=== PATIENT | female | born 1940 | race Caucasian/White ===

== ENCOUNTER → 2017-07-07 | Outpatient (CLI) | payer OTHER ==
[~2017-07-07] MED LIST: ONDA8TAB6 PO; PROM25TA9 PO
--- NOTE | 2017-07-07 15:02 | DIAGNOSTIC IMAGING REPORT ---
A-PORT CHECK CLINICAL HISTORY: Abnormal port function. COMPARISON STUDY: None. FINDINGS: Total fluoroscopy time was 0.3 minutes. 13 fluoroscopic spot and digital subtraction images of the chest were obtained. A total of 20 cc of Optiray 300 was injected through the indwelling left subclavian Port-A-Cath. The tip is abnormally positioned and is a medial to the expected location of the SVC. Therefore, this likely resides within the azygos vein. There is also evidence for a fibrin sheath within the distal tip of the port. However, contrast does extend into the SVC. IMPRESSION: 1. Fibrin sheath within the distal port. However, contrast does extend into the SVC. 2. The distal tip of the port appears to be abnormally positioned and may reside within the azygos vein. Electronically signed by: Liang Lin M.D. 07/07/2017 3:01 PM Dictated Date/Time: 07/07/2017 2:57 PM
== END | disposition home or self-care (01) ==
LOC: C.RAD 14:02
PROVIDERS: ATTEND Internal Medicine Hematology
DX: Z51.11 Encounter for antineoplastic chemotherapy (principal); T82.41XA Breakdown (mechanical) of vascular dialysis catheter, initial encounter; X58.XXXA Exposure to other specified factors, initial encounter; Z51.0 Encounter for antineoplastic radiation therapy; C53.9 Malignant neoplasm of cervix uteri, unspecified

== ENCOUNTER → 2017-08-31 | Outpatient (CLI) | payer OTHER ==
--- NOTE | 2017-08-31 14:18 | DIAGNOSTIC IMAGING REPORT ---
INFUSION PORT CHECK CLINICAL HISTORY: Infusion port malfunction. Azygos positioning of the report suggested on prior study. Separate sheath. COMPARISON STUDY: Infusion port check dated 07/07/2017. PROCEDURE AND FINDINGS: The infusion port was accessed and approximately 20 cc of Optiray 300 was injected under fluoroscopic guidance using digital subtraction imaging to assess the patient's infusion port. The infusion port is unchanged in position. The tip is positioned medial to the expected location of the SVC and may be located within the azygos vein. There is evidence for fibrin sheath which is unchanged from previous. Contrast does extend into the SVC. Fluoroscopy time: 0.1 minutes. IMPRESSION: 1. Unchanged appearance of a fibrin sheath involving the distal port as compared to 07/07/2017. Contrast does reach the SVC. 2. The tip of the port is unchanged in position and may be located within the azygos vein. Electronically signed by: David Monique M.D. 08/31/2017 2:17 PM Dictated Date/Time: 08/31/2017 2:13 PM
== END | disposition home or self-care (01) ==
LOC: C.RAD 13:00
PROVIDERS: ATTEND Internal Medicine Hematology
DX: Z51.11 Encounter for antineoplastic chemotherapy (principal); Z95.828 Presence of other vascular implants and grafts

== ENCOUNTER 2017-11-23 10:20 | Inpatient (IN) | payer OTHER ==
[2017-11-23] VITALS (10 sets, daily range): BP systolic 108–132; BP diastolic 57–80; PULSE 86–102; TEMP 36.5–37.7; O2SAT 97–100; Ht 162.6 cm; Wt 57.4 kg
[~2017-11-23] VITALS: Ht 162.6 cm; Wt 57.4 kg
[~2017-11-23 10:20] MED LIST changes: +ONDA-170 PO; -ONDA8TAB6 PO
--- NOTE | 2017-11-23 12:34 | EMERGENCY ROOM VISIT NOTE ---
History Report prepared by Kely: Tim Fontaine Under the Supervision of: Dr. Fabi Carranza D.O. 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 The patient had labs done with her PCP and was advised to come to the ED for a possible blood transfusion. She has uterine cancer that spread to lymph nodes and stomach. She is currently being treated with chemotherapy. She notes intermittent abdominal, back pain, general weakness, and constant chills. She currently rates her pain a 4/10 in severity. She has thrush on her tongue, though she has not received medication for it. She denies any lightheadedness. 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 Review of Systems See HPI for pertinent positives & negatives. A total of 10 systems reviewed and were otherwise negative. Past Medical & Surgical Medical Problems: (1) Anemia (2) Diverticulosis Colon (W/O Ment Of Hemorrhage) (3) Hyponatremia (4) Uterine cancer Surgical Problems: (1) H/O tubal ligation (2) Hx of tubal ligation Family History No significant family history Social History Smoking Status: Never Smoker Alcohol Use: none Housing Status: lives with family Occupation Status: employed Current/Historical Medications Scheduled Diclofenac Sodium (Diclofenac Sodium Dr), 1 TAB PO Q8 Megestrol Acetate (Megestrol Acetate), 20 ML PO DAILY Multivitamin (Multivitamin), 1 TAB PO DAILY Ondansetron Hcl (Zofran), 8 MG PO Q8 Oyster Shell (Calcium), 1 TAB PO DAILY Scheduled PRN Promethazine Hcl (Phenergan), 25 MG PO Q4H PRN for Nausea Allergies Coded Allergies: No Known Allergies (Unverified , 05/28/14) Physical Exam Vital Signs Date Time Temp Pulse Resp B/P (MAP) Pulse Ox O2 Delivery O2 Flow Rate FiO2 11/23/17 15:30 122/62 11/23/17 15:20 102 19 99 11/23/17 15:20 101 21 113/70 98 11/23/17 15:19 113/70 11/23/17 15:15 133/68 11/23/17 15:12 122/66 11/23/17 15:09 37.7 102 22 132/72 98 11/23/17 15:09 11/23/17 15:00 132/72 11/23/17 14:50 104 24 11/23/17 14:30 130/69 11/23/17 14:20 102 26 99 11/23/17 14:00 133/65 11/23/17 13:52 110 18 112/70 100 Room Air 11/23/17 13:50 111 24 112/70 11/23/17 13:20 115 21 11/23/17 13:00 125/60 11/23/17 12:50 100 27 100 11/23/17 12:49 102 18 108/56 95 Room Air 11/23/17 12:30 108/56 11/23/17 12:25 114/58 11/23/17 12:09 100 11/23/17 11:55 101 18 107/61 99 Room Air 11/23/17 11:51 107/61 11/23/17 10:21 36.9 78 18 92/57 96 Room Air Physical Exam GENERAL: Elderly. alert, ill-appearing, cachetic, no distress. Ambulates okay. EYE EXAM: normal conjunctiva, PERRL and EOM's grossly intact OROPHARYNX: no exudate, no erythema, lips, buccal mucosa, and tongue normal and mucous membranes are moist NECK: supple, no nuchal rigidity, no adenopathy, non-tender LUNGS: Clear to auscultation. Normal chest wall mechanics HEART: no murmurs, S1 normal and S2 normal CHEST: Port in left anterior superior chest wall. ABDOMEN: abdomen soft, non-tender, normo-active bowel sounds, no masses, no rebound or guarding. BACK: Back is symmetrical on inspection and there is no deformity, no midline tenderness, no CVA tenderness. SKIN: no rashes and no bruising UPPER EXTREMITIES: upper extremities are grossly normal. LOWER EXTREMITIES: No pitting edema. NEURO EXAM: Normal sensorium, cranial nerves II-XII grossly intact, normal speech, no gross weakness of arms, no gross weakness of legs. Medical Decision & Procedures ER Provider Diagnostic Interpretation: Radiology results have been interpreted by the radiologist and reviewed by me. CT OF THE ABDOMEN AND PELVIS WITH CONTRAST CLINICAL HISTORY: Abdominal pain. Metastatic cancer. COMPARISON STUDY: PET/CT June 22, 2017. TECHNIQUE: Following IV administration of 93 mL of Optiray-320, axial images of the abdomen and pelvis were obtained from the lung bases to the proximal femurs. Images were reviewed in the axial, sagittal, and coronal planes. IV contrast was administered without complication. A dose lowering technique was utilized adhering to the principles of ALARA. CT DOSE: 576.28 mGycm FINDINGS: Visualized portions of the lower chest demonstrate significant increase in size and number of pulmonary nodules since PET/CT of June 22, 2017. Index left lower lobe lesion shown on image 16 of 95 measures 3 cm. Index right lower lobe lobe lesion shown on image 9 measures 1.7 cm. A 3.9 cm right hepatic dome cyst is again noted. There are no suspicious hepatic lesions. The spleen, right adrenal gland are unremarkable. A 2.3 cm left adrenal nodule has increased in size since prior exam. Numerous enlarged upper abdominal lymph nodes have significantly increased in size and number since PET/CT of June 22, 2017. These nodes appear largely necrotic. A left upper quadrant node shown image 27 measures 6 cm. This was not shown on previous exam. A periceliac node shown on image 27 measures 3.4 cm. It previously measured 2.5 cm. A index peripancreatic node shown image 20 measures 4.3 cm. It previously measured 3.7 cm. Portacaval lymph node has increased in size as well with mass effect upon the IVC and portal vein. Mild bilateral collecting system dilatation is similar to PET/CT of June 22, 2017. Both nephrographic and symmetric. There is no evidence for a bowel obstruction. There is sigmoid diverticulosis without evidence for acute diverticulitis. Mild bladder wall thickening is noted. Mass like enlargement of the cervix and uterine canal is noted. There is gas throughout the uterine canal which was present on PET/CT of June 22, 2017. Has increased since PET/CT of June 22, 2017. There has been interval development of mild infiltration within the fat adjacent to the superior aspect of this mass. No suspicious osseous lesions are noted. Gallstones are noted within the gallbladder. There is no evidence for acute cholecystitis. IMPRESSION: 1. Significant progression of upper abdominal lymphadenopathy and pulmonary metastases since PET/CT of June 22, 2017. 2. Large necrotic cervical/endometrial mass as shown on PET/CT of June 22, 2017. Increase in amount of gas and fluid within the endometrial canal since prior exam with interval development of mild adjacent infiltration. The gas is nonspecific and could reflect necrotic tumor however the findings raise the possibility of a superimposed abscess. An underlying fistula cannot be excluded given adjacent matted bowel loops. The adjacent infiltration could also reflect postradiation change. 3. Mild bladder wall thickening which could be correlated with urinalysis. 4. No change in mild bilateral collecting system dilatation since PET/CT of June 22, 2017. Electronically signed by: Nathen Arevalo M.D. 11/23/2017 2:10 PM Dictated Date/Time: 11/23/2017 1:49 PM CHEST ONE VIEW PORTABLE CLINICAL HISTORY: 77 years-old Female presenting with fever. TECHNIQUE: Portable upright AP view of the chest was obtained. COMPARISON: PET/CT from 06/22/2017. FINDINGS: Left subclavian Mediport takes an irregular course. Atherosclerosis of the aortic arch. Chronic silhouette normal in size. Multiple bilateral nodules suggested. Mildly low lung volumes. No large pleural effusion or pneumothorax. Degenerative changes of the thoracic spine. Upper abdomen normal. IMPRESSION: 1. Multiple bilateral pulmonary nodules suggested consistent with metastatic disease. 2. Left subclavian Mediport has an irregular course. Recommend confirmation of appropriate intravenous location with contrast-enhanced chest CT. Electronically signed by: Zeyad Knight M.D. 11/23/2017 3:53 PM Dictated Date/Time: 11/23/2017 3:50 PM Laboratory Results Test 11/23/17 11:30 11/23/17 13:14 Hypochromasia PRESENT Poikilocytosis PRESENT Total Bilirubin 0.4 mg/dl (0.2-1) Aspartate Amino Transf (AST/SGOT) 49 U/L (15-37) Alanine Aminotransferase (ALT/SGPT) 33 U/L (12-78) Alkaline Phosphatase 142 U/L (45-117) Total Protein 6.4 gm/dl (6.4-8.2) Albumin 2.2 gm/dl (3.4-5.0) Globulin 4.2 gm/dl (2.5-4.0) Albumin/Globulin Ratio 0.5 (0.9-2) Prothrombin Time 11.7 SECONDS (9.0-12.0) Prothromb Time International Ratio 1.1 (0.9-1.1) Laboratory results per my review. Medications Administered Medications (Trade) Dose Ordered Sig/Denny Route Start Time Stop Time Status Last Admin Dose Admin Sodium Chloride 1,000 ml @ 250 mls/hr Q4H STAT IV 11/23/17 12:35 11/23/17 16:06 DC 11/23/17 12:45 250 MLS/HR Acetaminophen (Tylenol Tab) 650 mg STK-MED ONCE .ROUTE 11/23/17 15:05 11/23/17 15:06 DC 11/23/17 15:11 650 MG Acetaminophen (Tylenol Tab) 650 mg Q4H PRN PO 11/23/17 15:30 12/23/17 15:29 11/24/17 08:15 650 MG ECG Indication: other (low blood count ) Rate (beats per minute): 105 Rhythm: sinus tachycardia Findings: no acute ischemic change, other (Baseline artifact noted. Normal axis. Normal intervals.) ED Course 1219: The patient was evaluated in room A3. A complete history and physical exam was performed. 1235: Ordered Sodium Chloride 1,000 ml @ 250 mls/hr IV 1315: I reassessed the patient at this time. She has no reproducible abdominal pain. She is resting comfortably. 1415: I reassessed the patient at this time. She is resting comfortably. 1438: I spoke with Anabella Simpson PA-C. We discussed the patients case. The patient will be evaluated by the [facility]ist Group for further management. 1505: Ordered Tylenol 650 mg PO Medical Decision The patient is a 77 year old female who presents to the ED with complaints of low blood count. Differential diagnosis include: side effect of chemo, GI bleed, infection, and kidney failure. Prior records/ancillary studies reviewed. Triage Nursing notes reviewed. The patient's history was also concerning for abdominal pain. Differential diagnosis: Etiologies such as appendicitis, diverticulitis, PUD, biliary pathology, UTI, pancreatitis, obstruction, mesenteric ischemia, aortic pathology, infections, inflammatory bowel disease, renal colic, as well as others were entertained. Patient referred to ear following outpatient lab showing severe anemia and concern the patient requires transfusion. Lab work here confirmed anemia, no thrombocytopenia. Leukocyte is as noted, however unable to access oncology records to determine if patient recently received additional medication in the setting of chemotherapy to help prevent leukopenia. At time of discussion with PA on hospitalist service, they were going to evaluate old records prior to making determination about need for antibiotics. Patient with no other acute Pathology found on CAT scan. Urinalysis not yet obtained. Patient with no urinary symptoms. No fevers here, patient denied any other symptoms. No pathology seen on chest x-ray. Patient's vital signs stable, patient and related in her usual fashion to the bathroom. Patient found to have mild hyponatremia, possibly due to poor by mouth intake. Medication Reconcilliation Current Medication List: was personally reviewed by me Blood Pressure Screening Patient's blood pressure: Normal blood pressure Consults Time Called: 1429 Consulting Physician: Anabella Simpson PA-C Returned Call: 1435 I spoke with Anabella Simpson PA-C. We discussed the patients case. The patient will be evaluated by [facility] for further management. Impression Primary Impression: Anemia Additional Impressions: Uterine cancer Leukocytosis Abdominal pain Hyponatremia Critical Care I have personally spent greater than 45 minutes of critical care time in the direct management of this patient. This includes bedside care, interpretation of diagnostic studies, and testing, discussion with consultants, patient, and family members, and other required patient management activities. This 45 minutes is in excess of all separately billable procedures. Scribe Attestation The scribe's documentation has been prepared under my direction and personally reviewed by me in its entirety. I confirm that the note above accurately reflects all work, treatment, procedures, and medical decision making performed by me. Departure Information Dispostion Being Evaluated By Hospitalist Referrals Bunny Malagon M.D. (PCP) Patient Instructions My [facility] Problem Qualifiers Primary Impression: Anemia Anemia type: unspecified type Qualified Codes: D64.9 - Anemia, unspecified Additional Impressions: Uterine cancer Malignant neoplasm of uterus location: unspecified site of uterus Qualified Codes: C55 - Malignant neoplasm of uterus, part unspecified Leukocytosis Leukocytosis type: unspecified Qualified Codes: D72.829 - Elevated white blood cell count, unspecified Abdominal pain Abdominal location: generalized Qualified Codes: R10.84 - Generalized abdominal pain
[2017-11-23 12:35] LABS: ALBUMIN 2.2 gm/dl (3.4-5.0); CALCIUM 8.4 mg/dl (8.5-10.1); CREATININE 0.73 mg/dl (0.60-1.20); POTASSIUM 3.9 mmol/L (3.5-5.1)
[2017-11-23] MEDS ORDERED: SODIUM CHLORIDE 0.9% 1000ML 1,000 ML IV STA (12:35)
[2017-11-23 12:38] LABS: TOTAL PROTEIN 6.4 gm/dl (6.4-8.2)
[2017-11-23 12:44] LABS: HEMATOCRIT 20.3 % (37-47); HEMOGLOBIN 6.6 g/dL (12.0-16.0); MEAN CELL VOLUME 71.7 fL (80-100); MEAN CORPUSCULAR HEMOGLOBIN 23.3 pg (25-34); MEAN CORPUSCULAR HGB CONC 32.5 g/dl (32-36); MEAN PLATELET VOLUME 8.6 fL (7.4-10.4); PLATELET COUNT 548 K/uL (130-400); RED CELL DISTRIBUTION WIDTH CV 19.7 % (11.5-14.5); RED CELL DISTRIBUTION WIDTH SD 51.1 fL (36.4-46.3); WHITE BLOOD COUNT 17.57 K/uL (4.8-10.8)
[2017-11-23 12:55] LABS: BASO % 0.1 %; BASO ABS # 0.02 K/uL (0-0.2); IG# 0.33 K/uL (0.00-0.02); LYMPH % 1.9 %; LYMPH ABS # 0.33 K/uL (1.2-3.4); MONO % 8.4 %; MONO ABS # 1.47 K/uL (0.11-0.59); NEUT % 87.7 %; NEUT ABS # 15.42 K/uL (1.4-6.5)
[2017-11-23] MEDS ORDERED: OPTIRAY 320 IV PRN (13:30)
[2017-11-23 13:35] LABS: INR 1.1 (0.9-1.1)
--- NOTE | 2017-11-23 14:11 | DIAGNOSTIC IMAGING REPORT ---
CT OF THE ABDOMEN AND PELVIS WITH CONTRAST CLINICAL HISTORY: Abdominal pain. Metastatic cancer. COMPARISON STUDY: PET/CT June 22, 2017. TECHNIQUE: Following IV administration of 93 mL of Optiray-320, axial images of the abdomen and pelvis were obtained from the lung bases to the proximal femurs. Images were reviewed in the axial, sagittal, and coronal planes. IV contrast was administered without complication. A dose lowering technique was utilized adhering to the principles of ALARA. CT DOSE: 576.28 mGycm FINDINGS: Visualized portions of the lower chest demonstrate significant increase in size and number of pulmonary nodules since PET/CT of June 22, 2017. Index left lower lobe lesion shown on image 16 of 95 measures 3 cm. Index right lower lobe lobe lesion shown on image 9 measures 1.7 cm. A 3.9 cm right hepatic dome cyst is again noted. There are no suspicious hepatic lesions. The spleen, right adrenal gland are unremarkable. A 2.3 cm left adrenal nodule has increased in size since prior exam. Numerous enlarged upper abdominal lymph nodes have significantly increased in size and number since PET/CT of June 22, 2017. These nodes appear largely necrotic. A left upper quadrant node shown image 27 measures 6 cm. This was not shown on previous exam. A periceliac node shown on image 27 measures 3.4 cm. It previously measured 2.5 cm. A index peripancreatic node shown image 20 measures 4.3 cm. It previously measured 3.7 cm. Portacaval lymph node has increased in size as well with mass effect upon the IVC and portal vein. Mild bilateral collecting system dilatation is similar to PET/CT of June 22, 2017. Both nephrographic and symmetric. There is no evidence for a bowel obstruction. There is sigmoid diverticulosis without evidence for acute diverticulitis. Mild bladder wall thickening is noted. Mass like enlargement of the cervix and uterine canal is noted. There is gas throughout the uterine canal which was present on PET/CT of June 22, 2017. Has increased since PET/CT of June 22, 2017. There has been interval development of mild infiltration within the fat adjacent to the superior aspect of this mass. No suspicious osseous lesions are noted. Gallstones are noted within the gallbladder. There is no evidence for acute cholecystitis. IMPRESSION: 1. Significant progression of upper abdominal lymphadenopathy and pulmonary metastases since PET/CT of June 22, 2017. 2. Large necrotic cervical/endometrial mass as shown on PET/CT of June 22, 2017. Increase in amount of gas and fluid within the endometrial canal since prior exam with interval development of mild adjacent infiltration. The gas is nonspecific and could reflect necrotic tumor however the findings raise the possibility of a superimposed abscess. An underlying fistula cannot be excluded given adjacent matted bowel loops. The adjacent infiltration could also reflect postradiation change. 3. Mild bladder wall thickening which could be correlated with urinalysis. 4. No change in mild bilateral collecting system dilatation since PET/CT of June 22, 2017. Electronically signed by: Nathen Arevalo M.D. 11/23/2017 2:10 PM Dictated Date/Time: 11/23/2017 1:49 PM
[2017-11-23] MEDS ORDERED: ACETAMINOPHEN 325 MG TAB ONE (15:05)
[2017-11-23] MEDS ORDERED: ONDANSETRON INJ 2 MG/ML 2 ML VIAL IV PRN (15:30)
--- NOTE | 2017-11-23 15:54 | DIAGNOSTIC IMAGING REPORT ---
CHEST ONE VIEW PORTABLE CLINICAL HISTORY: 77 years-old Female presenting with fever. TECHNIQUE: Portable upright AP view of the chest was obtained. COMPARISON: PET/CT from 06/22/2017. FINDINGS: Left subclavian Mediport takes an irregular course. Atherosclerosis of the aortic arch. Chronic silhouette normal in size. Multiple bilateral nodules suggested. Mildly low lung volumes. No large pleural effusion or pneumothorax. Degenerative changes of the thoracic spine. Upper abdomen normal. IMPRESSION: 1. Multiple bilateral pulmonary nodules suggested consistent with metastatic disease. 2. Left subclavian Mediport has an irregular course. Recommend confirmation of appropriate intravenous location with contrast-enhanced chest CT. Electronically signed by: Zeyad Knight M.D. 11/23/2017 3:53 PM Dictated Date/Time: 11/23/2017 3:50 PM
[2017-11-23] MEDS ORDERED: PROM25TA9 PO (15:59)
[2017-11-23] MEDS ORDERED: CALC-5 PO (15:59)
[2017-11-23] MEDS ORDERED: MGCL40 PO (15:59)
[2017-11-23] MEDS ORDERED: DICL1TAB5 PO (15:59)
[2017-11-23] MEDS ORDERED: ONDA8TAB12 PO (15:59)
[2017-11-23] MEDS ORDERED: MULT-506 PO (15:59)
--- NOTE | 2017-11-23 16:00 | NUR ---
PATIENT ADMITTED TO PCU ROOM 212 AT THIS TIME VIA LITTER FROM ED. HOTEL ENGINEER APPLIED, VITAL SIGNS OBTAINED. PATIENT ASSESSED, SEE EMR FOR ADMISSION ASSESSMENT. PATIENT REPORTS PAIN 0/10 AT THIS TIME, GOAL PAIN RATING 0/10. PATIENT STATES THAT SHE CAME TO THE HOSPITAL TODAY BECAUSE HER PCP TOLD HER TO GO TO THE ED FOR A BLOOD TRANSFUSION. PATIENTS DISCHARGE GOAL IS HOME WITH SON, KORIN, WHO SHE CURRENTLY LIVES WITH. PATIENT EDUCATED ON NEUTROPENIC PRECAUTIONS AND FALL RISK, RED SOCKS APPLIED. PATIENT ORIENTED TO ROOM, CALL [facility], BED CONTROLS, AND HOSPITAL PROCEDURE. PATIENT POSITIONED IN BED FOR COMFORT, BLOOD TRANSFUSION CURRENTLY IN PROCESS THAT WAS BEGUN IN ED, FREQUENT VITAL SIGNS BEING OBTAINED. PRIMARY RN, VIKTORIYA NOYOLA AT BEDSIDE. CALL [facility] WITHIN REACH.
[2017-11-23] MEDS ORDERED: OYST500T47 PO (16:08)
[2017-11-23] MEDS: NYSTATIN SUSP 500,000 U/5 ML UDC PO SCH ×2 (16:49→20:14)
--- NOTE | 2017-11-23 18:13 | History and Physical ---
History & Physical Date & Time of Service: Nov 23, 2017 at 16:13 Chief Complaint: Low Blood Count,Thrush Primary Care Physician: Bunny Malagon M.D. 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 Pt was to have chemo today however was sent to ER secondary to hyponatremia and anemia. Pt received procrit today. Pt reports undergoing radiation treatments. Pt c/o decreased appetite and generalized weakness since starting chemo but denies any worsening recently. Pt denies any hx blood transfusions in past. Intermittent nausea, and uses zofran prn. Reports abdominal pain and back pain for months and intermittent brown vaginal discharge, that has not increased and denies red vaginal bleeding. Denies fever/ chills, diaphoresis, V/D/C, PERALTA, dizziness, syncope, vision changes, neck pain, CP, SOB, orthopnea, palpitations, cough, sore throat, choking, extremity edema, rashes, dysuria, hematuria, melena, hematochezia. out pt labs today 11/23/17: Vit B12 >2000, Ferritin: 643, Folic acid >20, iron: 14, transferrin sat: 9, iron bindin In ER temp: 36.9-37.7. P: 78-110, BP: 92/57-122/66. WBC: 17, Hgb: 6.6 (baseline 8). Na: 125. pending blood cultures. U/A pending. EKG: sinus tachy: 105. CT abd/ pelvis: progression of upper abdominal lymphadenopathy and pulmonary metastases since PET/CT of June 22, 2017, Large necrotic cervical/endometrial mass as shown on PET/CT of June 22, 2017.Increase in amount of gas and fluid within the endometrial canal since prior exam with interval development of mild adjacent infiltration. Past Medical/Surgical History Medical Problems: (1) Uterine cancer Permanent Comment: Uterine CA with latia to abdomen, lung. following with Dr Sanches Status: Chronic Surgical Problems: (1) H/O tubal ligation Status: Resolved (2) Hx of tubal ligation Status: Resolved Family History Diabetes mellitus Stroke Social History Smoking Status: Never Smoker Smokeless Tobacco Use: No Alcohol Use: none Drug Use: none Housing status: lives with family Occupational Status: employed Multi-Drug Resistant Organisms History of MDRO: No Allergies Coded Allergies: No Known Allergies (Unverified , 05/28/14) Home Medications Scheduled Diclofenac Sodium (Diclofenac Sodium Dr), 1 TAB PO Q8 Megestrol Acetate (Megestrol Acetate), 20 ML PO DAILY Multivitamin (Multivitamin), 1 TAB PO DAILY Ondansetron Hcl (Zofran), 8 MG PO Q8 Oyster Shell (Calcium), 1 TAB PO DAILY Scheduled PRN Promethazine Hcl (Phenergan), 25 MG PO Q4H PRN for Nausea Review of Systems Constitutional: No fever, No chills, No sweats Eyes: No eye pain, No redness ENT: + problem reported, No unusual epistaxis, No nasal symptoms, No trouble swallowing Respiratory: No cough, No sputum, No wheezing, No shortness of breath, No dyspnea on exertion, No dyspnea at rest, No hemoptysis Cardiovascular: No chest pain, No orthopnea, No PND, No edema, No palpitations Abdomen: + problem reported (see HPI) Musculoskeletal: No calf pain Genitourinary - Female: + problem reported (see HPI) Neurologic: No numbness/tingling, No vertigo Endocrine: No excessive thirst, No excessive urination Integumentary: No rash, No itch, No problem reported Physical Exam Vital Signs Date Time Temp Pulse Resp B/P (MAP) Pulse Ox O2 Delivery O2 Flow Rate FiO2 11/23/17 15:53 37.7 102 19 122/62 98 11/23/17 15:43 102 19 122/62 98 11/23/17 15:33 100 20 122/62 100 11/23/17 15:30 122/62 11/23/17 15:20 102 19 99 11/23/17 15:20 101 21 113/70 98 11/23/17 15:19 113/70 11/23/17 15:15 133/68 11/23/17 15:12 122/66 11/23/17 15:09 37.7 102 22 132/72 98 11/23/17 15:09 11/23/17 15:00 132/72 11/23/17 14:50 104 24 11/23/17 14:30 130/69 11/23/17 14:20 102 26 99 11/23/17 14:00 133/65 11/23/17 13:52 110 18 112/70 100 Room Air 11/23/17 13:50 111 24 112/70 11/23/17 13:20 115 21 11/23/17 13:00 125/60 11/23/17 12:50 100 27 100 11/23/17 12:49 102 18 108/56 95 Room Air 11/23/17 12:30 108/56 11/23/17 12:25 114/58 11/23/17 12:09 100 11/23/17 11:55 101 18 107/61 99 Room Air 11/23/17 11:51 107/61 11/23/17 10:21 36.9 78 18 92/57 96 Room Air General Appearance: + thin, + pertinent finding (chronically ill appearing) Head: normocephalic, atraumatic Eyes: normal inspection, PERRL, EOMI, sclerae normal ENT: + pertinent finding (+thrush, dry oral mucous membranes) Neck: supple, no JVD, trachea midline Respiratory/Chest: chest non-tender, no respiratory distress, no accessory muscle use, + decreased breath sounds Cardiovascular: no murmur, normal peripheral pulses, + tachycardia (regular rhythm, rate 104) Abdomen/GI: normal bowel sounds, soft, + tenderness (diffuse tenderness throughout) Back: no CVA tenderness Extremities/Musculoskelatal: no calf tenderness, normal capillary refill, non- tender, + pedal edema (trace bilaterally) Neurologic/Psych: alert, normal mood/affect, oriented x 3 Skin: normal color, warm/dry Diagnostics Laboratory Results Last 24 Hours Test 11/23/17 11:30 11/23/17 13:14 White Blood Count 17.57 K/uL Red Blood Count 2.83 M/uL Hemoglobin 6.6 g/dL Hematocrit 20.3 % Mean Corpuscular Volume 71.7 fL Mean Corpuscular Hemoglobin 23.3 pg Mean Corpuscular Hemoglobin Concent 32.5 g/dl Platelet Count 548 K/uL Mean Platelet Volume 8.6 fL Neutrophils (%) (Auto) 87.7 % Lymphocytes (%) (Auto) 1.9 % Monocytes (%) (Auto) 8.4 % Eosinophils (%) (Auto) 0.0 % Basophils (%) (Auto) 0.1 % Neutrophils # (Auto) 15.42 K/uL Lymphocytes # (Auto) 0.33 K/uL Monocytes # (Auto) 1.47 K/uL Eosinophils # (Auto) 0.00 K/uL Basophils # (Auto) 0.02 K/uL RDW Standard Deviation 51.1 fL RDW Coefficient of Variation 19.7 % Immature Granulocyte % (Auto) 1.9 % Immature Granulocyte # (Auto) 0.33 K/uL Toxic Granulation 1+ Hypochromasia PRESENT Poikilocytosis PRESENT Sodium Level 125 mmol/L Potassium Level 3.9 mmol/L Chloride Level 92 mmol/L Carbon Dioxide Level 24 mmol/L Anion Gap 9.0 mmol/L Blood Urea Nitrogen 17 mg/dl Creatinine 0.73 mg/dl Est Creatinine Clear Calc Drug Dose 55.8 ml/min Estimated GFR () 92.1 Estimated GFR (Non- 79.4 BUN/Creatinine Ratio 23.2 Random Glucose 104 mg/dl Calcium Level 8.4 mg/dl Total Bilirubin 0.4 mg/dl Aspartate Amino Transf (AST/SGOT) 49 U/L Alanine Aminotransferase (ALT/SGPT) 33 U/L Alkaline Phosphatase 142 U/L Total Protein 6.4 gm/dl Albumin 2.2 gm/dl Globulin 4.2 gm/dl Albumin/Globulin Ratio 0.5 Prothrombin Time 11.7 SECONDS Prothromb Time International Ratio 1.1 Diagnostic Radiology CXR: IMPRESSION: 1. Multiple bilateral pulmonary nodules suggested consistent with metastatic disease. 2. Left subclavian Mediport has an irregular course. Recommend confirmation of appropriate intravenous location with contrast-enhanced chest CT. CT ABD/PELVIS: IMPRESSION: 1. Significant progression of upper abdominal lymphadenopathy and pulmonary metastases since PET/CT of June 22, 2017. 2. Large necrotic cervical/endometrial mass as shown on PET/CT of June 22, 2017. Increase in amount of gas and fluid within the endometrial canal since prior exam with interval development of mild adjacent infiltration. The gas is nonspecific and could reflect necrotic tumor however the findings raise the possibility of a superimposed abscess. An underlying fistula cannot be excluded given adjacent matted bowel loops. The adjacent infiltration could also reflect postradiation change. 3. Mild bladder wall thickening which could be correlated with urinalysis. 4. No change in mild bilateral collecting system dilatation since PET/CT of June 22, 2017. EKG EKG: sinus tachycardia 105 Impression Assessment and Plan ANEMIA Anemia probable secondary to CA, chemo. Pt with hx metastatic uterine sarcoma, receiving chemo. Received procrit today. Hgb: 6.6 (baseline 8.0). Tachy low 100' s. Pt denies dizziness, SOB. No active bleeding. -transfuse 2 units PRBC -repeat H&H after transfusion -repeat CBC in am LEUKOCYTOSIS WBC: 17. CXR negative for infiltrate. -pending U/A -pending blood cultures, lactic acid -continue to monitor, hold on abx at this time and add abx if U/A positive or changes in pt's condition -repeat cbc in am HYPONATREMIA Na: 125. (Na 131 on 11/03/17) -gentle IVF -repeat prp in am THRUSH -nystatin suspension s QID DVT PROPHYLAXIS -SCDs DISPOSITION -admit tele -Full Code as per discussion with pt -Follows with Dr Malagon for routine care Pt was seen with Dr Cole. See addendum Attending Addendum: The patient was seen and examined Admitted through the clinic with low Hb and Low Na Patient denies any symptoms O/E No distress at rest Hemodynamically stable Chest-clear to ausucltate bilaterally Heart-regular Abdomen-benign Extremities-negative for any edema Labs noted Will get 2 units of PRBC and monitor PRP Likely discharge tomorrow Agree with the assessment and plan. Dr Lázaro Cole Level of Care Telemetry Resuscitation Status FULL RESUSCITATION VTE Prophylaxis VTE Risk Assessment Done? Y/N: Yes Risk Level: High Given or contraindicated: SCD's Additional Copies To Bunny Malagon M.D.
--- NOTE | 2017-11-23 20:00 | NUR ---
A: Patient in room, resting in bed at this time. Alert and oriented. Generalized weakness noted. Lungs clear and diminished. Sinus tachycardia noted on monitor. Patient incontinent of large amount of foul smelling urine. MIVF infusing at 75 mL/hr. Left SC port accessed using sterile technique. Neuropathy noted in bilateral feet. Ambulates with 1x assist. Call cheatham within reach, will continue to monitor.
[2017-11-23] MEDS: SODIUM CHLORIDE 0.9% 1000ML 1,000 ML IV SCH (20:14)
[2017-11-23 20:55] LABS: HEMATOCRIT 28.5 % (37-47); HEMOGLOBIN 9.6 g/dL (12.0-16.0)
[2017-11-23] MEDS: CEFTRIAXONE SOD INJ 1 GM in DEXTROSE 5% ADD-VANTAGE 50ML 50 ML IV SCH (22:05)
[2017-11-24] VITALS (8 sets, daily range): BP systolic 111–138; BP diastolic 55–73; PULSE 88–112; TEMP 36.3–38; O2SAT 97–98
--- NOTE | 2017-11-24 00:01 | NUR ---
A: Patient in room, appears to be resting comfortably at this time. Sinus tachycardia in the 130's noted on school bus monitor with ambulation. Patient denies chest pain or increased shortness of breath. MIVF continues to infuse via left SC implanted port. Denies pain at this time. No further change in assessment. will continue to monitor. call cheatham within reach
--- NOTE | 2017-11-24 00:05 | NUR ---
A: Anabella Carvajal pagelasha, patient sinus tachycardia in 130's with ambulation to bathroom. H/H 9.6/28.5. No further intervention at this time
--- NOTE | 2017-11-24 04:00 | NUR ---
A: Patient in room, resting comfortably in bed at this time. Ambulating to bathroom frequently with 1x person assist. MIVF infusing. Sinus tachycardia noted with ambulation. Denies pain. Call cheatham within reach, will continue to monitor.
[2017-11-24 06:13] LABS: BASO % 0.1 %; BASO ABS # 0.03 K/uL (0-0.2); EOS ABS # 0.01 K/uL (0-0.5); HEMATOCRIT 25.8 % (37-47); HEMOGLOBIN 8.7 g/dL (12.0-16.0); IG# 0.33 K/uL (0.00-0.02); LYMPH % 2.8 %; LYMPH ABS # 0.56 K/uL (1.2-3.4); MEAN CELL VOLUME 74.8 fL (80-100); MEAN CORPUSCULAR HEMOGLOBIN 25.2 pg (25-34); MEAN CORPUSCULAR HGB CONC 33.7 g/dl (32-36); MEAN PLATELET VOLUME 8.3 fL (7.4-10.4); MONO % 7.2 %; MONO ABS # 1.46 K/uL (0.11-0.59); NEUT % 88.3 %; NEUT ABS # 17.75 K/uL (1.4-6.5); PLATELET COUNT 468 K/uL (130-400); RED CELL DISTRIBUTION WIDTH SD 54.1 fL (36.4-46.3); WHITE BLOOD COUNT 20.14 K/uL (4.8-10.8)
[2017-11-24 06:23] LABS: CALCIUM 8.1 mg/dl (8.5-10.1); CREATININE 0.66 mg/dl (0.60-1.20); POTASSIUM 3.7 mmol/L (3.5-5.1)
[2017-11-24] MEDS: SODIUM CHLORIDE 0.9% 1000ML 1,000 ML IV SCH ×2 (06:23→19:35)
[2017-11-24] MEDS: NYSTATIN SUSP 500,000 U/5 ML UDC PO SCH ×4 (07:42→20:11)
--- NOTE | 2017-11-24 08:00 | NUR ---
Patient awake and alert. Flat affect; states that she feels very weak. VSS. Denies pain. SR-ST on monitor, 90's-low 100's. Denies any CP/pressure/palpitations. Pulses palpable throughout. Minimal trace edema noted to B/LLE. Lung sounds are clear; sats WNL on RA. Denies nausea/vomiting. Abdomen soft and nontender. Tolerating diet, but has decreased appetite. Voiding foul-smelling cloudy urine in restroom. Urine culture pending, but UA shows +UTI. Skin intact. Left subclavian Mediport accessed and infusing NS @ 75 ml/hr; no blood return- patient states this is not new. #20 left AC saline locked. H+H this morning is 8.7/25.8. Explained plan for day. Fall precautions intact. Will continue to monitor.
--- NOTE | 2017-11-24 08:12 | Clinical Documentation Query ---
Dr. DUKES,LEXIE : CLINICAL DOCUMENTATION QUERY Patient is a 77 year old female admitted for treatment of anemia secondary to chemotherapy in the setting of uterine sarcoma with abdominal and lung metastasis. Patient reports decreased appetite in the setting of chemotherapy. BMI 21 kg/m*m. Weight decreased from 63.9 kg (06/2017) to 55.5 kg currently, representing a decrease of > 13% over this interval. Additionally, oral thrush present. In your clinical opinion is this patient suffering from: ( ) Severe protein-calorie malnutrition ( ) Not Agree ( ) Other explanation of clinical findings (Please Explain) ( ) Unable to determine (Please Define) ( ) Need to Discuss The medical record reflects the following clinical findings, treatment, and risk factors. Clinical Indicators: As above Treatment: Regular, mechanical soft diet. Treatment of thrush Risk Factors: Uterine ca, metastasis, sequelae, and treatment thereof. Please clarify and document your clinical opinion in the progress notes and discharge summary. Terms such as "probable", "suspected", "likely", "questionable", "possible", or "still to be ruled out" are acceptable. IF IN AGREEMENT, YOU MUST DOCUMENT ABOVE DIAGNOSTIC STATEMENT IN DAILY PROGRESS NOTES AND DISCHARGE SUMMARY. This document is not part of the patient's record. Thank You, Lenny Ng, RN [phone]
[2017-11-24] MEDS: ACETAMINOPHEN 325 MG TAB PO PRN ×2 (08:15→20:12)
--- NOTE | 2017-11-24 10:51 | NUR ---
Case management note. Pt identified on social service screening tool as ca pt under treatment. Pt lives with son Tom. Pt other son lives next door. Pt does not use any assistive devices. Pt lives in a 1 story house. Pts daughter Leah helps with bathing. Pt does not have home health. Pts son Adam drives pt to apts. Pt gets chemo. Pt lives in a 1 story house with a ramp. Pt c/o weakness. Explained role of human services case manager. Pt wants to return home at discharge. Pts family is with per 20/06. Recommend PT/OT evals prior to discharge. Discharge needs at uncertain at this time. Pt will need to be at baseline level of functioning prior to discharge. Case management to follow with pt.
--- NOTE | 2017-11-24 11:16 | NUR ---
Advance Directive note: Upon arrival to patient room she was sleeping. I chose not to wake her at this time. I will attempt follow-up later. Material is in admission packet.
--- NOTE | 2017-11-24 12:00 | NUR ---
Patient in NAD. VSS. Continues in NSR on monitor. No changes to assessment. Will continue to monitor.
--- NOTE | 2017-11-24 16:01 | NUR ---
A: Patient resting in room. Denies CP or SOB. VSS. Tolerating diet. Turned and repositioned. Family at bedside. Call cheatham within reach. Verbalizes no needs at this time.
--- NOTE | 2017-11-24 18:31 | Progress Note ---
Medicine Progress Note Date & Time of Visit: Nov 24, 2017 at 18:23. Subjective Patient states she is feeling well, denies any N/V. Family at the bedside and was updated. No overnight events noted. Tolerating PO but has a hard time chewing without any bottom teeth. No other complaints noted. Objective Last 8 Hrs Date Time Temp Pulse Resp B/P (MAP) Pulse Ox O2 Delivery O2 Flow Rate FiO2 11/24/17 16:44 98 Room Air 11/24/17 15:44 37.2 92 22 131/55 (80) 98 Room Air 11/24/17 12:00 Room Air 11/24/17 11:41 36.3 88 19 111/63 (79) 98 Room Air Physical Exam: GENERAL: Patient is in no acute distress. HEENT: No acute trauma, normocephalic, mucous membranes moist, no nasal congestion, no scleral icterus. Bottom teeth not present. Conjunctivae clear. NECK: No stridor, trachea is midline. LUNGS: Clear to auscultation bilaterally, no wheeze, no rhonchi, breath sounds equal. HEART: Without murmurs gallops or rubs, regular rate and rhythm. Left chest wall port noted ABDOMEN: Soft, nontender, bowel sounds positive, no hepatosplenomegaly EXTREMITIES: No cyanosis or edema, full range of motion of all the joints NEUROLOGIC: Oriented x 3, no acute motor or sensory deficits, no focal weakness. SKIN: No rash, no jaundice, no diaphoresis. Laboratory Results: Last 24 Hours Test 11/23/17 20:25 11/24/17 05:37 Hemoglobin 9.6 g/dL 8.7 g/dL Hematocrit 28.5 % 25.8 % Lactic Acid Level 1.2 mmol/L Procalcitonin 0.35 ng/ml White Blood Count 20.14 K/uL Red Blood Count 3.45 M/uL Mean Corpuscular Volume 74.8 fL Mean Corpuscular Hemoglobin 25.2 pg Mean Corpuscular Hemoglobin Concent 33.7 g/dl Platelet Count 468 K/uL Mean Platelet Volume 8.3 fL Neutrophils (%) (Auto) 88.3 % Lymphocytes (%) (Auto) 2.8 % Monocytes (%) (Auto) 7.2 % Eosinophils (%) (Auto) 0.0 % Basophils (%) (Auto) 0.1 % Neutrophils # (Auto) 17.75 K/uL Lymphocytes # (Auto) 0.56 K/uL Monocytes # (Auto) 1.46 K/uL Eosinophils # (Auto) 0.01 K/uL Basophils # (Auto) 0.03 K/uL RDW Standard Deviation 54.1 fL RDW Coefficient of Variation 20.0 % Immature Granulocyte % (Auto) 1.6 % Immature Granulocyte # (Auto) 0.33 K/uL Toxic Granulation 1+ Anisocytosis PRESENT Microcytosis PRESENT Sodium Level 127 mmol/L Potassium Level 3.7 mmol/L Chloride Level 96 mmol/L Carbon Dioxide Level 22 mmol/L Anion Gap 9.0 mmol/L Blood Urea Nitrogen 12 mg/dl Creatinine 0.66 mg/dl Est Creatinine Clear Calc Drug Dose 61.7 ml/min Estimated GFR () 98.8 Estimated GFR (Non- 85.2 BUN/Creatinine Ratio 18.9 Random Glucose 98 mg/dl Calcium Level 8.1 mg/dl Assessment & Plan ANEMIA: -likely secondary to chemo, although could also be from the metastatic CA -has metastatic uterine sarcoma, receiving chemo -received procrit yesterday -Hgb: 6.6 on admission (baseline 8.0)-->9-->8.7 today -no active bleeding noted -asymptomatic except for tachycardia -S/P transfusion with 2 units PRBC -will repeat CBC in am LEUKOCYTOSIS: likely secondary to UTI -CXR negative for infiltrate. -Urine culture showing E coli -blood cultures pending -lactic acid normal -Continue on ceftriaxone HYPONATREMIA: Na: 125. (Na 131 on 11/03/17)-->127 today -continue gentle IVF UTERINE SARCOMA WITH METS: -patient under the care of Dr. Sanches, to have chemo and evaluation upon discharge ORAL CANDIDIASIS: -nystatin suspension QID Current Inpatient Medications: Current Inpatient Medications Medications (Trade) Dose Ordered Sig/Denny Route Start Time Stop Time Status Last Admin Dose Admin Ioversol (Optiray 320) 100 ml UD PRN IV 11/23/17 13:30 11/27/17 13:29 Acetaminophen (Tylenol Tab) 650 mg Q4H PRN PO 11/23/17 15:30 12/23/17 15:29 11/24/17 08:15 650 MG Ondansetron HCl (Zofran Inj) 4 mg Q6H PRN IV 11/23/17 15:30 12/23/17 15:29 Nystatin (Mycostatin Susp) 5 ml QID PO 11/23/17 17:00 12/23/17 16:59 11/24/17 17:28 5 ML Sodium Chloride 1,000 ml @ 75 mls/hr [id number] IV 11/23/17 16:30 12/23/17 16:29 11/24/17 06:23 75 MLS/HR Ceftriaxone Sodium 1 gm/ Dextrose 50 ml @ 100 mls/hr Q24H IV 11/23/17 22:00 11/28/17 21:59 11/23/17 22:05 100 MLS/HR Heparin Sodium (Porcine) (Heparin 100 Unit/ml 5ml Flush) 5 ml PRN PRN IV 11/23/17 23:15 12/23/17 23:14
[2017-11-24] MEDS: CEFTRIAXONE SOD INJ 1 GM in DEXTROSE 5% ADD-VANTAGE 50ML 50 ML IV SCH (20:53)
--- NOTE | 2017-11-25 | NUR ---
PHYSICAL ASSESSMENT COMPLETED, SEE EMR FOR FULL DOCUMENTATION. SLEEPING COMFORTABLY, ROUSES EASILY. DENIES PAIN OR SOB. VSS. NO DISTRESS EVIDENT. SR ON TELEMETRY. TOLERATING IVF THERAPY W/O S/S OF VOLUME OVERLOAD. INCONTINENT OF BLADDER AT TIMES. REPOSITIONS SELF IN BED. NEUTROPENIC PRECAUTIONS MAINTAINED. CALL ONEILL IN REACH, BED IN LOWEST POSITION, SIDE RAILS UP, WILL CONTINUE TO MONITOR.
[2017-11-25 00:52] VITALS: BP 126/64; PULSE 94; TEMP 36.6; O2SAT 100
--- NOTE | 2017-11-25 04:00 | NUR ---
NO CHANGES NOTED TO PHYSICAL ASSESSMENT AT THIS TIME. SLEEPING W/O C/O PAIN OR SOB THIS SHIFT. CONTINUES TO TOLERATE IVFs W/O S/S OF VOLUME OVERLOAD. REFUSED SCDs THIS SHIFT. NO NEW ISSUES OR CONCERNS. CALL ONEILL IN REACH, WILL CONTINUE TO MONITOR.
[2017-11-25 06:15] LABS: HEMATOCRIT 26.1 % (37-47); HEMOGLOBIN 8.6 g/dL (12.0-16.0); MEAN CELL VOLUME 75.2 fL (80-100); MEAN CORPUSCULAR HEMOGLOBIN 24.8 pg (25-34); MEAN PLATELET VOLUME 8.3 fL (7.4-10.4); PLATELET COUNT 470 K/uL (130-400); RED CELL DISTRIBUTION WIDTH CV 20.5 % (11.5-14.5); RED CELL DISTRIBUTION WIDTH SD 55.6 fL (36.4-46.3); WHITE BLOOD COUNT 16.96 K/uL (4.8-10.8)
[2017-11-25 06:50] LABS: CALCIUM 8.4 mg/dl (8.5-10.1); CREATININE 0.6 mg/dl (0.60-1.20); POTASSIUM 3.8 mmol/L (3.5-5.1)
[2017-11-25 07:50] VITALS: BP 115/66; PULSE 102; TEMP 37; O2SAT 99
--- NOTE | 2017-11-25 08:00 | NUR ---
A/ID: Patient assessment complete, see EMR. Patient alert and oriented x4. Denies pain, nausea, or shortness of breath at this time. See EMR for labs and vital signs. SR on plastic sheeting cutter. OOB to chair with supervision assistance. Patient independent with bed mobility. Patient states she's ready to go home today. Awaiting physician assessment. Call cheatham within reach, will continue to monitor.
[2017-11-25] MEDS: SODIUM CHLORIDE 0.9% 1000ML 1,000 ML IV SCH (08:21)
[2017-11-25] MEDS: NYSTATIN SUSP 500,000 U/5 ML UDC PO SCH ×2 (08:21→12:20)
[2017-11-25 10:35] VITALS: BP 115/58; PULSE 98; O2SAT 98
[2017-11-25 10:44] VITALS: BP 113/65; PULSE 98; TEMP 37.3; O2SAT 97
--- NOTE | 2017-11-25 11:54 | NUR ---
A: Patient OOB to chair, tolerating well. Vital signs stable, see EMR. SR on air sampling and monitoring. Awaiting physician assessment.
--- NOTE | 2017-11-25 12:49 | NUR ---
Patient is currently unavailable for Advance Directive conversation. Material is in admission packet.
--- NOTE | 2017-11-25 13:00 | NUR ---
Case management note. Spoke with pt about discharge planning. Pt plans to return home. Discussed home health. Pt refuses. Encouraged pt to consider home health but she continues to refuse. Pt denies any discharge needs. Case management to follow with pt.
[2017-11-25] MEDS ORDERED: NYSS5 PO (13:32)
[2017-11-25] MEDS ORDERED: CIPR250T26 PO (13:32)
--- NOTE | 2017-11-25 13:35 | Discharge Instructions ---
Discharge Instructions Date of Service Nov 25, 2017. Admission Reason for Admission: Anemia, Hyponatremia Discharge Discharge Diagnosis / Problem: Anemia, Hyponatremia, Thrush, UTI Discharge Goals Goal(s): Diagnostic testing, Therapeutic intervention Activity Recommendations Activity Limitations: per Instructions/Follow-up section Lifting Limitations: gradually increase as tolerated Exercise/Sports Limitations: gradually increase as tolerated . Instructions / Follow-Up Instructions / Follow-Up Please see Dr. Sanches as scheduled Please see Dr. Corona on December 01, at 2:45 PM for hospital follow up Current Hospital Diet Patient's current hospital diet: Regular Diet Discharge Diet Recommended Diet: Regular Diet Procedures Procedures Performed: Blood transfusion Pending Studies Studies pending at discharge: no Medical Emergencies . Who to Call and When: Medical Emergencies: If at any time you feel your situation is an emergency, please call 911 immediately. . Non-Emergent Contact Non-Emergency issues call your: Primary Care Provider, Oncologist . . "Provider Documentation" section prepared by Addis Gunn. . VTE Core Measure Inpt VTE Proph given/why not?: SCD's
--- NOTE | 2017-11-25 13:36 | Discharge Summary ---
Discharge Summary Date of Service Nov 25, 2017. Discharge Summary Admission Date: Nov 23, 2017 at 15:32 Discharge Date: Nov 25, 2017 Discharge Disposition: Home with services Principal Diagnosis: Anemia, oral candidiasis, UTI Pending Studies/Follow-Up: CBC and BMP at follow up, follow up with Hem/Onc and PCP Medication Reconciliation New Medications: Ciprofloxacin (Ciprofloxacin HCl) 250 Mg Tab 1 TAB PO BID, #6 TABS Nystatin (Nystatin) 5 Ml Susp 5 ML PO QID, #140 ML Continued Medications: Diclofenac Sodium (Diclofenac Sodium Dr) 25 Mg Tab 1 TAB PO Q8 for Pain, TAB Megestrol Acetate (Megestrol Acetate) 40 Mg/1 Ml Susp 20 ML PO DAILY Multivitamin (Multivitamin) Tab 1 TAB PO DAILY, TAB Ondansetron Hcl (Zofran) 8 Mg Tab 8 MG PO Q8 for Nausea, TAB Oyster Shell (Calcium) 500 Mg Tab 1 TAB PO DAILY Promethazine Hcl (Phenergan) 25 Mg Tab 25 MG PO Q4H PRN for Nausea, TAB Admission Information HPI (per Admitting provider): Pt is 77 y/o F with 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 Pt was to have chemo today however was sent to ER secondary to hyponatremia and anemia. Pt received procrit today. Pt reports undergoing radiation treatments. Pt c/o decreased appetite and generalized weakness since starting chemo but denies any worsening recently. Pt denies any hx blood transfusions in past. Intermittent nausea, and uses zofran prn. Reports abdominal pain and back pain for months and intermittent brown vaginal discharge, that has not increased and denies red vaginal bleeding. Denies fever/ chills, diaphoresis, V/D/C, PERALTA, dizziness, syncope, vision changes, neck pain, CP, SOB, orthopnea, palpitations, cough, sore throat, choking, extremity edema, rashes, dysuria, hematuria, melena, hematochezia. out pt labs today 11/23/17: Vit B12 >2000, Ferritin: 643, Folic acid >20, iron: 14, transferrin sat: 9, iron bindin In ER temp: 36.9-37.7. P: 78-110, BP: 92/57-122/66. WBC: 17, Hgb: 6.6 (baseline 8). Na: 125. pending blood cultures. U/A pending. EKG: sinus tachy: 105. CT abd/ pelvis: progression of upper abdominal lymphadenopathy and pulmonary metastases since PET/CT of June 22, 2017, Large necrotic cervical/endometrial mass as shown on PET/CT of June 22, 2017.Increase in amount of gas and fluid within the endometrial canal since prior exam with interval development of mild adjacent infiltration. Physical Exam (per Admitting): General Appearance: + thin, + pertinent finding (chronically ill appearing) Head: normocephalic, atraumatic Eyes: normal inspection, PERRL, EOMI, sclerae normal ENT: + pertinent finding (+thrush, dry oral mucous membranes) Neck: supple, no JVD, trachea midline Respiratory/Chest: chest non-tender, no respiratory distress, no accessory muscle use, + decreased breath sounds Cardiovascular: no murmur, normal peripheral pulses, + tachycardia (regular rhythm, rate 104) Abdomen/GI: normal bowel sounds, soft, + tenderness (diffuse tenderness throughout) Back: no CVA tenderness Extremities/Musculoskelatal: no calf tenderness, normal capillary refill, non-tender, + pedal edema (trace bilaterally) Neurologic/Psych: alert, normal mood/affect, oriented x 3 Skin: normal color, warm/dry Hospital Course ANEMIA: -likely secondary to chemo, although could also be from the metastatic CA -has metastatic uterine sarcoma, receiving chemo -received procrit yesterday -Hgb: 6.6 on admission (baseline 8.0)-->9-->8.7 -no active bleeding noted -asymptomatic except for tachycardia -S/P transfusion with 2 units PRBC -will repeat CBC in am LEUKOCYTOSIS: likely secondary to UTI -CXR negative for infiltrate. -Urine culture showing E coli -blood cultures pending -lactic acid normal -Continue on ceftriaxone HYPONATREMIA: Na: 125. (Na 131 on 11/03/17)-->127 today -continue gentle IVF UTERINE SARCOMA WITH METS: -patient under the care of Dr. Sanches, to have chemo and evaluation upon discharge ORAL CANDIDIASIS: -nystatin suspension QID PHYSICAL EXAM ON DAY OF DISCHARGE: GENERAL: Patient is in no acute distress. HEENT: No acute trauma, normocephalic, mucous membranes moist, no nasal congestion, no scleral icterus. NECK: No stridor, trachea is midline. LUNGS: Clear to auscultation bilaterally, no wheeze, no rhonchi, breath sounds equal. HEART: Without murmurs gallops or rubs, regular rate and rhythm. ABDOMEN: Soft, nontender, bowel sounds positive EXTREMITIES: No cyanosis or edema NEUROLOGIC: Oriented x 3, no acute motor or sensory deficits, no focal weakness. SKIN: No rash, no jaundice, no diaphoresis. Total time spent on discharge = 35 This includes examination of the patient, discharge planning, medication reconciliation, and communication with other providers. Discharge Instructions See patient instructions
[2017-11-25 13:55] VITALS: BP 113/65; PULSE 98; TEMP 37.3; O2SAT 97
--- NOTE | 2017-11-25 15:30 | NUR ---
A: Patient discharged to home at this time with her son and daughter in law. Verbalized understanding of discharge instructions, medications, prescriptions, and follow up appointments.
== END 2017-11-25 15:30 | disposition home or self-care (01) | DRG 812 ==
LOC: C.EDB 10:20 → C.2E 15:32 → ENRESERV 15:41
PROVIDERS: ADMIT Internal Medicine; ATTEND Internal Medicine
DX: D64.81 Anemia due to antineoplastic chemotherapy (principal); B37.0 Candidal stomatitis; C49.8 Malignant neoplasm of overlapping sites of connective and soft tissue; E87.1 Hypo-osmolality and hyponatremia; C79.89 Secondary malignant neoplasm of other specified sites; C78.00 Secondary malignant neoplasm of unspecified lung; D63.0 Anemia in neoplastic disease; K57.90 Diverticulosis of intestine, part unspecified, without perforation or abscess without bleeding; Z83.3 Family history of diabetes mellitus; Z92.3 Personal history of irradiation; T45.1X5A Adverse effect of antineoplastic and immunosuppressive drugs, initial encounter; Y92.019 Unspecified place in single-family (private) house as the place of occurrence of the external cause

== ENCOUNTER → 2017-12-05 | Outpatient (CLI) | payer OTHER ==
[~2017-12-05] MED LIST changes: +CIPR250T5 PO; +DICL1TAB5 PO; +GADAVIST IV PRN; +MGCL40 PO; +MULT-506 PO; +NYSS5 PO; -ONDA-170 PO; +ONDA8TAB12 PO; +OYST500T47 PO
--- NOTE | 2017-12-05 11:52 | DIAGNOSTIC IMAGING REPORT ---
MRI OF THE BRAIN WITHOUT AND WITH IV CONTRAST CLINICAL HISTORY: UTERINE CA,CONFUSION, DISORIENTATION COMPARISON STUDY: Noncontrast head CT dated May 2014 TECHNIQUE: MRI of the brain was performed from the vertex to the skull base utilizing various T1 and T2 weighted sequences. Following the IV administration of 5.5 mL of Gadavist contrast, additional enhanced images were obtained. FINDINGS: Sagittal T1, axial diffusion, proton density and T2 weighted axial, coronal FLAIR, and pre and post axial T1-weighted images were acquired. These were supplemented with post gadolinium coronal T1 weighted images. No intra or extra-axial mass lesions are visualized. Axial diffusion-weighted images reveal no evidence of acute or subacute infarction. There is no evidence of ventricular dilatation. Proton density T2-weighted and FLAIR images reveal scattered foci of increased T2 signal within the white matter, likely on a small vessel basis. There are no abnormal flow voids. There is no evidence of pathologic enhancement. IMPRESSION: 1. No acute intracranial findings 2. No evidence of intracranial mass. No evidence of acute or subacute infarction 3. No evidence of metastatic disease. Electronically signed by: Mark Lowry M.D. 12/05/2017 11:50 AM Dictated Date/Time: 12/05/2017 11:47 AM
== END | disposition home or self-care (01) ==
LOC: C.MRI 10:58
PROVIDERS: ATTEND Physician Assistant
DX: C54.9 Malignant neoplasm of corpus uteri, unspecified (principal); C77.5 Secondary and unspecified malignant neoplasm of intrapelvic lymph nodes; F99 Mental disorder, not otherwise specified